=== PATIENT | male | born 1980 | race Caucasian/White ===

== ENCOUNTER 2017-04-01 01:57 | Emergency (ER) | payer OTHER, BC ==
[2017-04-01] MEDS ORDERED: Sodium Chloride 0.9% 1,000 ML IV ONE (02:05)
[2017-04-01] MEDS ORDERED: Albuterol/Ipratropium 3.0-0.5 MG/3 ML Neb Soln NEB ONE (02:07)
--- NOTE | 2017-04-01 02:07 | EDM.PDOC ---
ED HPI GENERAL MEDICAL PROBLEM - General Chief Complaint: Respiratory Problem Stated Complaint: TROUBLE BREATHING, WALKING PNEUMONIA Time Seen by Provider: 04/01/17 02:06 - History of Present Illness INITIAL COMMENTS - FREE TEXT/NARRATIVE: HISTORY AND PHYSICAL: History of present illness: Patient 37-year-old white male presents with concern of shortness of breath and cough he was diagnosed recently with pneumonia he was seen at an outpatient clinic he states he's had no significant improvement. He denies fever nausea vomiting or other complaints Review of systems: As per history of present illness and below otherwise all systems reviewed and negative. Past medical history: As per history of present illness and as reviewed below otherwise noncontributory. Surgical history: As per history of present illness and as reviewed below otherwise noncontributory. Social history: No reported history of drug or alcohol abuse. Family history: As per history of present illness and as reviewed below otherwise noncontributory. Physical exam: HEENT: Atraumatic, normocephalic, pupils reactive, negative for conjunctival pallor or scleral icterus, mucous membranes moist, throat clear, neck supple, nontender, trachea midline. Lungs: Slightly diminished and coarse bilaterally, breath sounds equal bilaterally, chest nontender. Heart: S1S2, regular, negative for clicks, rubs, or JVD. Abdomen: Soft, nondistended, nontender. Negative for masses or hepatosplenomegaly. Negative for costovertebral tenderness. Pelvis: Stable nontender. Genitourinary: Deferred. Rectal: Deferred. Extremities: Atraumatic, negative for cords or calf pain. Neurovascular unremarkable. Neuro: Awake, alert, oriented. Cranial nerves II through XII unremarkable. Cerebellum unremarkable. Motor and sensory unremarkable throughout. Exam nonfocal. Diagnostics: CBC CMP blood culture 2 lactic acid chest x-ray Therapeutics: Albuterol ipratropium nebulizer 0.9 normal saline 1 L bolus Impression: #1 dyspnea #2 history of pneumonia Definitive disposition and diagnosis as appropriate pending reevaluation and review of above. chest area Pain Score (Numeric/FACES): 1 - Related Data Allergies Allergy/AdvReac Type Severity Reaction Status Date / Time No Known Allergies Allergy Verified 04/01/17 02:03 Home Meds: Home Meds Unrecalled Antibiotic 04/01/17 [History] ED ROS GENERAL - Review of Systems Review Of Systems: ROS reveals no pertinent complaints other than HPI. ED EXAM, GENERAL - Physical Exam Exam: See Below (Dictation) Course - Vital Signs Last Recorded V/S: Last Vital Signs Temp 36.6 C 04/01/17 03:04 Pulse 80 04/01/17 04:05 Resp 18 04/01/17 04:05 BP 125/85 04/01/17 04:05 Pulse Ox 95 04/01/17 04:05 - Orders/Labs/Meds Orders: Active Orders 24 hr Category Date Time Status RT Aerosol Therapy [RC] ASDIRECTED Care 04/01/17 02:07 Active CULTURE BLOOD [BC] Stat Lab 04/01/17 02:25 Received CULTURE BLOOD [BC] Stat Lab 04/01/17 02:32 Received Blood Culture x2 Reflex Set [OM.PC] Stat Oth 04/01/17 02:05 Ordered Labs: Laboratory Tests 04/01/17 04/01/17 04/01/17 Range/Units 02:10 02:10 02:10 WBC 15.18 H (4.0-11.0) K/uL RBC 5.03 (4.50-5.90) M/uL Hgb 15.0 (13.0-17.0) g/dL Hct 44.5 (38.0-50.0) % MCV 88.5 (80.0-98.0) fL MCH 29.8 (27.0-32.0) pg MCHC 33.7 (31.0-37.0) g/dL RDW Std Deviation 43.2 (28.0-62.0) fl RDW Coeff of Grace 13 (11.0-15.0) % Plt Count 390 (150-400) K/uL MPV 9.40 (7.40-12.00) fL Add Manual Diff YES Neutrophils % (Manual) 61 (48.0-80.0) % Band Neutrophils % 1 % Lymphocytes % (Manual) 24 (16.0-40.0) % Monocytes % (Manual) 6 (0.0-15.0) % Eosinophils % (Manual) 6 (0.0-7.0) % Metamyelocytes % 2 % Nucleated RBC % 0.0 /100WBC Absolute Seg Neuts 9.3 H (1.4-5.7) Band Neutrophils # 0.2 Lymphocytes # (Manual) 3.6 H (0.6-2.4) Monocytes # (Manual) 0.9 H (0.0-0.8) Eosinophils # (Manual) 0.9 H (0.0-0.7) Absolute Metamyelocyte 0.3 Nucleated RBCs # 0 K/uL Lactate 1.1 (0.20-2.00) mmol/L Sodium 138 (136-146) mmol/L Potassium 4.4 (3.5-5.1) mmol/L Chloride 106 (98-110) mmol/L Carbon Dioxide 22 (21-31) mmol/L BUN 19 (6.0-23.0) mg/dL Creatinine 1.0 (0.6-1.5) mg/dL Est Cr Clr Drug Dosing 104.43 mL/min Estimated GFR (MDRD) > 60.0 ml/min Glucose 112 H (60-110) mg/dL Calcium 10.0 (8.8-10.8) mg/dL Total Bilirubin 0.3 (0.1-1.5) mg/dL AST 21 (5-40) IU/L ALT 43 (8-54) IU/L Alkaline Phosphatase 49 (40-150) Total Protein 7.0 (6.0-8.0) g/dL Albumin 4.0 (3.5-5.0) g/dL Globulin 3.0 (2.0-3.5) g/dL Albumin/Globulin Ratio 1.3 (1.3-2.8) Meds: Medications Discontinued Medications Generic Name Dose Route Start Last Admin Trade Name Freq PRN Reason Stop Dose Admin Albuterol/Ipratropium 3 ml 04/01/17 02:07 04/01/17 02:21 Duoneb 3.0-0.5 Mg/3 Ml NEB 04/01/17 02:08 3 ml ONETIME ONE Administration Sodium Chloride 1,000 mls @ 999 mls/hr 04/01/17 02:05 04/01/17 02:13 Normal Saline IV 04/01/17 03:05 999 mls/hr STAT ONE Administration Ceftriaxone Sodium/Dextrose 1 50 mls @ 100 mls/hr 04/01/17 03:29 04/01/17 03: 39 gm/ Premix IV 04/01/17 03:58 100 mls/hr ONETIME ONE Administration Departure - Departure Time of Disposition: 19:06 Disposition: Home, Self-Care 01 Clinical Impression: Shortness of breath - Discharge Information Instructions: Shortness of Breath, [id number], Cough, Adult, [id number] Referrals: PCP,None [Primary Care Provider] - Forms: ED Department Discharge Care Plan Goals: Continue previous antibiotic @ home Albuterol Inhaler as prescribed - My Orders Last 24 Hours: My Active Orders 04/01/17 02:05 Blood Culture x2 Reflex Set [OM.PC] Stat 04/01/17 02:07 RT Aerosol Therapy [RC] ASDIRECTED 04/01/17 02:25 CULTURE BLOOD [BC] Stat 04/01/17 02:32 CULTURE BLOOD [BC] Stat - Assessment/Plan Last 24 Hours: My Active Orders 04/01/17 02:05 Blood Culture x2 Reflex Set [OM.PC] Stat 04/01/17 02:07 RT Aerosol Therapy [RC] ASDIRECTED 04/01/17 02:25 CULTURE BLOOD [BC] Stat 04/01/17 02:32 CULTURE BLOOD [BC] Stat
[2017-04-01 02:40] LABS: CHLORIDE,CL 106 mmol/L (98-110); SODIUM,NA 138 mmol/L (136-146)
[2017-04-01] MEDS ORDERED: cefTRIAXone 1 GM in Premix Bag 1 BAG IV ONE (03:29)
--- NOTE | 2017-04-01 15:58 | CR ---
EXAM DATE: 04/01/17 PATIENT'S AGE: 37 Patient: ONOFRE CULP Facility: [place], [place] Site . Site : 1980 Study: XRay Chest [id number] 3:02:16 AM Ordering Physician: Doctor Balderas Final Report: INDICATION: Shortness of breath TECHNIQUE: Chest radiograph 2 views COMPARISON: None FINDINGS: Mediastinum: The heart silhouette is normal in size and morphology. The mediastinum is normal in appearance. Lungs: Both lungs are unremarkable in appearance. No sign of pleural effusion seen. No pneumothorax is identified. Bones and soft tissue: Unremarkable for age. IMPRESSION: 1. No acute cardiopulmonary disease is seen. Dictated by: Jarrod Flood MD @ 04/01/2017 03:03:40 (Electronic Signature) Report Signed by Proxy. MTDSummer
== END 2017-04-01 04:06 | disposition home or self-care (01) ==
LOC: MW.ED 01:57
DX: R06.02 Shortness of breath (principal); Z87.01 Personal history of pneumonia (recurrent)
CPT/HCPCS: 71020; 80053; 83605; 85025; 87040; 87804; 94640; 96361; 96365; 99285; J0696; J7040; 99283

== ENCOUNTER 2018-08-24 15:41 | Emergency (ER) | payer BC, OTHER ==
[2018-08-24] MEDS ORDERED: Albuterol/Ipratropium 3.0-0.5 MG/3 ML Neb Soln NEB ONE (15:55)
[2018-08-24] MEDS ORDERED: predniSONE 20 MG Tab PO ONE (15:55)
--- NOTE | 2018-08-24 15:58 | EDM.PDOC ---
ED HPI GENERAL MEDICAL PROBLEM - General Chief Complaint: Respiratory Problem Stated Complaint: TROUBLE BREATHING Time Seen by Provider: 08/24/18 15:53 - History of Present Illness INITIAL COMMENTS - FREE TEXT/NARRATIVE: HISTORY AND PHYSICAL: History of present illness: Patient is a 38-year-old white male with history of bronchospasm who presents with a concern of wheezing shortness of breath and sore throat over last 24 hours he used his nebulizer at home with some improvement. He denies fever chills nausea vomiting or other concern Review of systems: As per history of present illness and below otherwise all systems reviewed and negative. Past medical history: As per history of present illness and as reviewed below otherwise noncontributory. Surgical history: As per history of present illness and as reviewed below otherwise noncontributory. Social history: No reported history of drug or alcohol abuse. Family history: As per history of present illness and as reviewed below otherwise noncontributory. Physical exam: HEENT: Atraumatic, normocephalic, pupils reactive, negative for conjunctival pallor or scleral icterus, mucous membranes moist, throat mild injection, neck supple, nontender, trachea midline. Lungs: Slightly diminished bilaterally three-ring next-door wheezing, breath sounds equal bilaterally, chest nontender. Heart: S1S2, regular, negative for clicks, rubs, or JVD. Abdomen: Soft, nondistended, nontender. Negative for masses or hepatosplenomegaly. Negative for costovertebral tenderness. Pelvis: Stable nontender. Genitourinary: Deferred. Rectal: Deferred. Extremities: Atraumatic, negative for cords or calf pain. Neurovascular unremarkable. Neuro: Awake, alert, oriented. Cranial nerves II through XII unremarkable. Cerebellum unremarkable. Motor and sensory unremarkable throughout. Exam nonfocal. Diagnostics: Chest x-ray rapid strep Therapeutics: Albuterol ipratropium nebulizer prednisone 40 mg by mouth Impression: #1 pharyngitis #2 reactive airway disease Definitive disposition and diagnosis as appropriate pending reevaluation and review of above. - Related Data Allergies Allergy/AdvReac Type Severity Reaction Status Date / Time No Known Allergies Allergy Verified 08/24/18 15:50 Home Meds: Home Meds . [No Known Home Meds] 08/24/18 [History] Past Medical History - Past Health History Medical/Surgical History: Denies Medical/Surgical History Respiratory History: Reports: Other (See Below) Other Respiratory History: hx of pneumonia - Infectious Disease History Infectious Disease History: Reports: None - Past Surgical History HEENT Surgical History: Reports: Oral Surgery Social & Family History - Family History Family Medical History: Noncontributory - Tobacco Use Smoking Status *Q: Never Smoker - Caffeine Use Caffeine Use: Reports: None Caffeine Use Comment: 1 cup daily - Recreational Drug Use Recreational Drug Use: No ED ROS GENERAL - Review of Systems Review Of Systems: ROS reveals no pertinent complaints other than HPI. ED EXAM, GENERAL - Physical Exam Exam: See Below (See dictation) Course - Vital Signs Last Recorded V/S: Last Vital Signs Temp 36.9 C 08/24/18 15:51 Pulse 89 08/24/18 15:51 Resp 18 08/24/18 15:51 BP 128/89 08/24/18 15:51 Pulse Ox 95 08/24/18 15:51 - Orders/Labs/Meds Orders: Active Orders 24 hr Category Date Time Status RT Aerosol Therapy [RC] ASDIRECTED Care 08/24/18 15:56 Active CULTURE STREP A CONFIRMATION [RM] Stat Lab 08/24/18 16:00 Results STREP SCRN A RAPID W CULT CONF [RM] Stat Lab 08/24/18 16:00 Results Meds: Medications Discontinued Medications Generic Name Dose Route Start Last Admin Trade Name Peña PRN Reason Stop Dose Admin Albuterol/Ipratropium 3 ml 08/24/18 15:55 08/24/18 16:09 Duoneb 3.0-0.5 Mg/3 Ml NEB 08/24/18 15:56 3 ml ONETIME ONE Administration Prednisone 40 mg 08/24/18 15:55 08/24/18 16:07 Prednisone PO 08/24/18 15:56 40 mg ONETIME ONE Administration Departure - Departure Time of Disposition: 16:57 Disposition: Home, Self-Care 01 Condition: Good Clinical Impression: Reactive airway disease - Discharge Information Forms: ED Department Discharge Additional Instructions: The following information is given to patients seen in the emergency department who are being discharged to home. This information is to outline your options for follow-up care. We provide all patients seen in our emergency department with a follow-up referral. The need for follow-up, as well as the timing and circumstances, are variable depending upon the specifics of your emergency department visit. If you don't have a primary care physician on staff, we will provide you with a referral. We always advise you to contact your personal physician following an emergency department visit to inform them of the circumstance of the visit and for follow-up with them and/or the need for any referrals to a consulting specialist. The emergency department will also refer you to a specialist when appropriate. This referral assures that you have the opportunity for followup care with a specialist. All of these measure are taken in an effort to provide you with optimal care, which includes your followup. Under all circumstances we always encourage you to contact your private physician who remains a resource for coordinating your care. When calling for followup care, please make the office aware that this follow-up is from your recent emergency room visit. If for any reason you are refused follow-up, please contact the [facility] emergency department at and asked to speak to the emergency department charge nurse. Medrol Dosepak albuterol as prescribed follow-up primary medical doctor as needed as discussed and return as needed as discussed - My Orders Last 24 Hours: My Active Orders 08/24/18 15:56 RT Aerosol Therapy [RC] ASDIRECTED 08/24/18 16:00 CULTURE STREP A CONFIRMATION [RM] Stat STREP SCRN A RAPID W CULT CONF [RM] Stat - Assessment/Plan Last 24 Hours: My Active Orders 08/24/18 15:56 RT Aerosol Therapy [RC] ASDIRECTED 08/24/18 16:00 CULTURE STREP A CONFIRMATION [RM] Stat STREP SCRN A RAPID W CULT CONF [RM] Stat
--- NOTE | 2018-08-24 16:37 | CR ---
INDICATION: pain, short of breath CHEST, ONE VIEW An AP radiograph of the chest was performed. Comparison: 04/01/2017. The lungs appear clear and no pleural effusions are identified. The cardiomediastinal silhouette and pulmonary vasculature appear normal, as do the visualized bones. IMPRESSION: No acute intrathoracic abnormality identified. ALBERTO WRAY MD [facility] Dictated by: Arun Wray MD @ 08/24/2018 16:36:30 (Electronically Signed)
== END 2018-08-24 17:20 | disposition home or self-care (01) ==
LOC: MW.ED 15:41
DX: J45.909 Unspecified asthma, uncomplicated (principal); J02.9 Acute pharyngitis, unspecified; Z98.890 Other specified postprocedural states
CPT/HCPCS: 71045; 87081; 87880; 99284; A9270; J7620-GY

== ENCOUNTER 2021-06-17 07:04 | Day surgery (SDC) | payer BC ==
[~2021-06-17 07:04] MED LIST: Lactated Ringers 1,000 ML IV SCH; ceFAZolin 2 GM in Premix Bag 1 BAG IV ONE
[2021-06-17] MEDS ORDERED: Midazolam 1 MG/ML 2 ML SDV ONE (07:10)
[2021-06-17] MEDS ORDERED: fentaNYL 250 MCG/5 ML SDV ONE (07:10)
[2021-06-17] MEDS ORDERED: Propofol 200 MG/20 ML SDV ONE (07:10)
[2021-06-17] MEDS ORDERED: Dexmedetomidine 200 MCG/2 ML SDV ONE (07:17)
[2021-06-17] MEDS ORDERED: Bupivacaine 0.25%/EPINEPHrine 1:200,000 10 ML SDV ONE (07:19)
[2021-06-17] MEDS ORDERED: Octyl 2-Cyanoacrylate 1 Tube ONE (07:20)
[2021-06-17] MEDS ORDERED: Rocuronium Bromide 50 MG/5 ML Syringe ONE ×2 (07:21→08:48)
[2021-06-17] MEDS ORDERED: Ondansetron 4 MG/2 ML SDV ONE (07:22)
[2021-06-17] MEDS ORDERED: Dexamethasone 4 MG/ML 5 ML MDV ONE (07:22)
[2021-06-17] MEDS ORDERED: Sugammadex Sodium 200 MG/2 ML VIAL ONE (07:23)
[2021-06-17] MEDS ORDERED: Metoclopramide 10 MG/2 ML SDV IVPUSH PRN (07:29)
[2021-06-17] MEDS ORDERED: Albuterol 0.083% 2.5 MG/3 ML Neb Soln NEB PRN (07:29)
[2021-06-17] MEDS ORDERED: Naloxone 0.4 MG/ML SDV IVPUSH PRN (07:29)
[2021-06-17] MEDS ORDERED: Morphine 4 MG/ML VIAL IVPUSH PRN (07:29)
[2021-06-17] MEDS ORDERED: fentaNYL 100 MCG/2 ML SDV IVPUSH PRN (07:29)
[2021-06-17] MEDS ORDERED: HYDROmorphone 1 MG/ML Syringe IVPUSH PRN (07:29)
[2021-06-17] MEDS ORDERED: Ondansetron 4 MG/2 ML SDV IVPUSH PRN (07:29)
[2021-06-17] MEDS ORDERED: Acetaminophen/oxyCODONE 325-5 MG Tab PO PRN (07:48)
[2021-06-17] MEDS ORDERED: Glycopyrrolate 0.2 MG/ML SDV ONE (08:17)
[2021-06-17] MEDS ORDERED: ePHEDrine 50 MG/ML SDV ONE (08:19)
[2021-06-17] MEDS ORDERED: Water For Injection, Sterile 20 ML ONE (08:52)
[2021-06-17] MEDS ORDERED: HYDROmorphone 2 MG/ML Syringe ONE (08:52)
[2021-06-17] MEDS ORDERED: Scopolamine 1.5 MG Transdermal Patch ONE (11:06)
[2021-06-17] MEDS ORDERED: Promethazine 25 MG/ML SDV ONE (11:07)
== END 2021-06-17 12:20 | disposition home or self-care (01) ==
LOC: MW.SDS 07:04
PROVIDERS: ATTEND Surgery
DX: K80.12 Calculus of gallbladder with acute and chronic cholecystitis without obstruction (principal); E66.9 Obesity, unspecified; Z68.34 Body mass index [BMI] 34.0-34.9, adult; Z87.891 Personal history of nicotine dependence; Z86.718 Personal history of other venous thrombosis and embolism; Z79.899 Other long term (current) drug therapy
CPT/HCPCS: 47562; A9270; J0131; J0690; J1100; J1170; J2250; J2550; J2704; J3010; J3490; J7030; J7120; 00790; J2405

== ENCOUNTER 2022-11-01 07:40 | Emergency (ER) | payer BC ==
[2022-11-01] MEDS ORDERED: Sodium Chloride 0.9% 1,000 ML IV ONE (07:47)
[2022-11-01] MEDS ORDERED: Ondansetron 4 MG/2 ML SDV IVPUSH ONE (07:47)
[2022-11-01] MEDS ORDERED: Famotidine 20 MG/2 ML SDV IVPUSH ONE (07:47)
[2022-11-01] MEDS ORDERED: Aluminum Hydroxide/Magnesium Hydroxide/Simethicone XS Susp 30 ML Cup PO ONE (07:47)
[2022-11-01 08:01] LABS: BASOPHILS PERCENT AUTO 0.4 % (0.0-1.5); EOSINOPHILS ABSOLUTE AUTO 0.1 K/uL (0.0-0.7); EOSINOPHILS PERCENT AUTO 1.6 % (0.0-7.0); HEMATOCRIT 45.6 % (38.0-50.0); HEMOGLOBIN 15.5 g/dL (13.0-17.0); LYMPHOCYTES ABSOLUTE AUTO 1.1 K/uL (0.6-2.4); LYMPHOCYTES PERCENT AUTO 15.1 % (16.0-40.0); MEAN CORPUSCULAR HEMOGLOBIN 30.2 pg (27.0-32.0); MEAN CORPUSCULAR VOLUME 88.9 fL (80.0-98.0); MONOCYTES ABSOLUTE AUTO 0.8 K/uL (0.0-0.8); MONOCYTES PERCENT AUTO 11.5 % (0.0-15.0); NEUTROPHILS PERCENT AUTO 71.4 % (48.0-80.0); NRBC ABSOLUTE 0 K/uL; PLATELET COUNT,PLT 301 K/uL (150-400); RED BLOOD CELL COUNT 5.13 M/uL (4.50-5.90); WHITE BLOOD CELL COUNT,WBC 7.02 K/uL (4.0-11.0)
[2022-11-01 09:00] LABS: A/G RATIO 1.2 (0.9-1.6); ALBUMIN 4.1 g/dL (3.4-5.0); BILIRUBIN TOTAL 3.3 mg/dL (0.2-1.0); CALCIUM 9.1 mg/dL (8.5-10.1); CARBON DIOXIDE,CO2 27.5 mmol/L (21.0-32.0); EST CRCL DRUG DOSING (CG) 99.36 mL/min; MAGNESIUM 2.2 mg/dL (1.8-2.4); POTASSIUM,K 3.9 mmol/L (3.5-5.1); PROTEIN TOTAL,TP 7.5 g/dL (6.4-8.2)
[2022-11-01] MEDS ORDERED: Iopamidol 755 MG/ML 500 ML Multipack Bottle IVPUSH STA (15:57)
[2022-11-01 18:22] LABS: INR 0.96 (0.86-1.11); PTT,PARTIAL THROMBOPLSTIN TIME 24.6 SEC (23.9-30.7)
[2022-11-03 13:07] LABS: HBSAG SCREEN Negative (Negative); HCV AB Non Reactive (Non Reactive); HEP A AB, IGM Negative (Negative); HEP B CORE AB, IGM Negative (Negative)
== END 2022-11-01 18:10 ==
LOC: MW.ED 07:40
DX: E80.6 Other disorders of bilirubin metabolism (principal); E66.9 Obesity, unspecified; Z68.30 Body mass index [BMI] 30.0-30.9, adult
CPT/HCPCS: 36415; 74177; 74181; 76700; 80053; 80074; 80143; 83690; 83735; 85025; 85610; 85730; 96361; 96374; 96375; 99285; A9270; J2405; J3490; J7030; Q9967

== ENCOUNTER 2024-09-12 06:19 | Emergency (ER) | payer BC ==
[2024-09-12] MEDS ORDERED: Sodium Chloride 0.9% 20 ML SDV IV PRN (06:45)
[2024-09-12] MEDS ORDERED: Sodium Chloride 0.9% 10 ML Syringe FLUSH PRN (06:45)
[2024-09-12] MEDS ORDERED: Sodium Chloride 0.9% 2.5 ML Syringe FLUSH PRN (06:45)
[2024-09-12 07:02] LABS: BASOPHILS ABSOLUTE AUTO 0.07 K/uL (0.00-0.20); EOSINOPHILS ABSOLUTE AUTO 0.26 K/uL (0.00-0.45); EOSINOPHILS PERCENT AUTO 3.8 % (0.0-6.0); HEMATOCRIT 45.7 % (42.0-52.0); HEMOGLOBIN 15.3 g/dL (14.0-18.0); IMMATURE GRAN ABSOLUTE AUTO 0.04 K/uL (0.00-0.05); IMMATURE GRAN PERCENT AUTO 0.6 % (0.0-0.4); LYMPHOCYTES ABSOLUTE AUTO 1.83 K/uL (1.00-4.80); LYMPHOCYTES PERCENT AUTO 26.6 % (24.0-44.0); MEAN CORPUSCULAR HGB CONC 33.5 g/dL (32.0-36.0); MEAN CORPUSCULAR VOLUME 89.6 fL (83.0-99.0); MEAN PLATELET VOLUME 9.3 fL (9.4-12.4); MONOCYTES ABSOLUTE AUTO 0.66 K/uL (0.00-0.80); MONOCYTES PERCENT AUTO 9.6 % (0.0-8.0); NEUTROPHILS ABSOLUTE AUTO 4.03 K/uL (1.80-7.70); NEUTROPHILS PERCENT AUTO 58.4 % (41.0-71.0); PLATELET COUNT,PLT 257 K/uL (150-400); WHITE BLOOD CELL COUNT,WBC 6.89 K/uL (3.9-11.3)
[2024-09-12] MEDS: Sodium Chloride 0.9% 1,000 ML IV ONE (07:10)
[2024-09-12 07:23] LABS: A/G RATIO 1.3 (0.9-1.6); BILIRUBIN TOTAL 0.9 mg/dL (0.2-1.0); CALCIUM 9.4 mg/dL (8.5-10.1); CREATININE 1.1 mg/dL (0.8-1.3); EST CRCL DRUG DOSING (CG) 88.48 mL/min; POTASSIUM,K 4.1 mmol/L (3.5-5.1); PROTEIN TOTAL,TP 7.1 g/dL (6.4-8.2)
[2024-09-12] MEDS: Iopamidol 755 MG/ML 500 ML Multipack Bottle IVPUSH STA (07:33)
[2024-09-12 08:23] LABS: APPEARANCE,URINE CLEAR; BILIRUBIN,URINE NEGATIVE (NEGATIVE); COLOR,URINE YELLOW; GLUCOSE,URINE NEGATIVE (NEGATIVE); KETONES,URINE NEGATIVE (NEGATIVE); LEUKOCYTE ESTERASE,URINE NEGATIVE (NEGATIVE); NITRITE,URINE NEGATIVE (NEGATIVE); OCCULT BLOOD,URINE NEGATIVE (NEGATIVE); PROTEIN,URINE NEGATIVE (NEGATIVE); UROBILINOGEN,URINE 0.2 EU/dL (<2.0)
== END 2024-09-12 08:40 | disposition home or self-care (01) ==
LOC: MW.ED 06:19
DX: R10.31 Right lower quadrant pain (principal); E66.9 Obesity, unspecified; Z68.30 Body mass index [BMI] 30.0-30.9, adult
CPT/HCPCS: 36415; 71101; 74177; 80053; 81003; 83690; 85025; 99284; J7030; Q9967; 99283